=== PATIENT | male | born 2005 | race Caucasian/White ===

== ENCOUNTER → 2025-01-16 18:03 | Outpatient (REF) | payer SELFPAY | LOC: RAD 18:03 | PROVIDERS: ATTENDING PHYSICIAN Internal Medicine | DX: R61 Generalized hyperhidrosis (principal) | CPT/HCPCS: 71046 ==

== ENCOUNTER → 2025-01-17 15:17 | Outpatient (REF) | payer SELFPAY | LOC: HWRAD 15:17 | PROVIDERS: ATTENDING PHYSICIAN Internal Medicine | DX: R59.0 Localized enlarged lymph nodes (principal) | CPT/HCPCS: 76536 ==